=== PATIENT | male | born 1950 | race Caucasian/White ===

== ENCOUNTER 2020-10-14 15:11 | Inpatient (IN) | payer MEDICAID, MEDICARE ==
[2020-10-13 20:00] VITALS: BP 153/93
[~2020-10-14] VITALS: Ht 182.9 cm; Wt 68.0 kg
--- NOTE | 2020-10-14 15:29 | NUR ---
LEYDA FROM [facility] TO ER BED 7. AAOX2. NOT IN RESP DISTRESS, BREATHING EVEN AND UNLABORED. BROUGHT IN FOR HD SHUNT MALFUNCTION. PER REPORT, PT WAS SUPPOSE TO BE DIALYSED BUT SHUNT IS REPORTED "CLOGGED". PT DID NOT GET DIALYSED TODAY (M,W,F). PT IS RUDE AND VERBALLY ABUSSIVE. WAS AT THE BEDSIDE FOR EVAL. AWAITING ORDERS
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
[2020-10-14 16:18] LABS: BASOPHILS # (AUTO) 0.1 /CMM (0.0-0.2); EOSINOPHILS % (AUTO) 5.8 % (0.0-6.0); HEMATOCRIT 34 % (39-51); HEMOGLOBIN 11.3 g/dL (13.5-17.5); LYMPHOCYTES # (AUTO) 1.5 /CMM (0.8-4.8); LYMPHOCYTES % (AUTO) 27.7 % (20.0-44.0); MEAN CORPUSCULAR HGB CONC 33 g/dl (31.0-36.0); MEAN CORPUSCULAR VOLUME 97 fL (80-96); MONOCYTES # (AUTO) 0.4 /CMM (0.1-1.30); MONOCYTES % (AUTO) 8.3 % (2.0-12.0); NEUTROPHILS % (AUTO) 57.2 % (43.0-81.0); PLATELET COUNT (AUTO) 193 /CMM (150-450); RED BLOOD CELL COUNT(AUTO) 3.53 MIL/uL (4.5-6.0); WHITE BLOOD COUNT (AUTO) 5.3 K/uL (4.3-11.0)
[2020-10-14] MEDS ORDERED: NITR0.4T48 SL (16:39)
[2020-10-14] MEDS ORDERED: OMEP1PAC7 PO (16:39)
[2020-10-14] MEDS ORDERED: ACID1TAB12 PO (16:39)
[2020-10-14] MEDS ORDERED: LEVE500T9 PO (16:39)
[2020-10-14] MEDS ORDERED: CHOL100040 PO (16:39)
[2020-10-14] MEDS ORDERED: INSU100V10 SQ (16:39)
[2020-10-14] MEDS ORDERED: SEVE800T7 PO (16:39)
[2020-10-14] MEDS ORDERED: QUET50TA PO (16:39)
[2020-10-14] MEDS ORDERED: ACET-868 PO (16:39)
[2020-10-14] MEDS ORDERED: HYDR25CA PO (16:39)
[2020-10-14] MEDS ORDERED: SEVE2.4P3 PO (16:39)
[2020-10-14] MEDS ORDERED: AMLO-213 PO (16:39)
[2020-10-14] MEDS ORDERED: EPOE1VIA7 SQ (16:39)
[2020-10-14] MEDS ORDERED: TAMS-12 PO (16:39)
[2020-10-14] MEDS ORDERED: ONDA4TAB5 PO (16:39)
[2020-10-14] MEDS ORDERED: FOLI0.8T2 PO (16:39)
[2020-10-14] MEDS ORDERED: ALLO100T PO (16:39)
[2020-10-14] MEDS ORDERED: ASPI-1169 PO (16:39)
[2020-10-14] MEDS ORDERED: LORA-259 PO (16:39)
[2020-10-14] MEDS ORDERED: ATOR10TA PO (16:39)
[2020-10-14] MEDS ORDERED: INSU100V11 SQ (16:39)
[2020-10-14] MEDS ORDERED: TRAZ-182 PO (16:39)
[2020-10-14] MEDS ORDERED: LIDO30CR TP (16:39)
[2020-10-14] MEDS ORDERED: MAGNESIUM HYDROXIDE 30 ML UDC PO PRN (17:00)
[2020-10-14] MEDS ORDERED: ACETAMINOPHEN 325 MG TABLET PO PRN (17:00)
[2020-10-14] MEDS ORDERED: Z GUARD REMEDY 2 OZ OINT TP PRN (17:00)
[2020-10-14] MEDS ORDERED: DEXTROSE 50%-WATER 50 ML DISP.SYRIN IV PRN (17:00)
[2020-10-14] MEDS ORDERED: MORPHINE SULFATE INJ 2 MG/ML DISP.SYRIN IV PRN (17:00)
[2020-10-14] MEDS ORDERED: NITROGLYCERIN 0.4 MG/TAB BOTTLE SL PRN (17:00)
[2020-10-14] MEDS ORDERED: MAG HYDROX/AL HYDROX/SIMETH 30 ML UDC PO PRN (17:00)
[2020-10-14] MEDS ORDERED: ONDANSETRON HCL/PF 4 MG/2 ML VIAL IVP PRN (17:00)
[2020-10-14 17:01] LABS: CALCIUM, SERUM 9.6 mg/dL (8.5-10.1); CARBON DIOXIDE 24 mmol/L (21-32); CHLORIDE 102 mmol/L (98-107); GLUCOSE 276 mg/dL (74-106); POTASSIUM 4.9 mmol/L (3.5-5.1); SODIUM SERUM 143 mmol/L (136-145)
[2020-10-14 17:02] LABS: CREATININE 14.2 mg/dL (0.6-1.3); UREA NITROGEN, BLOOD 104 mg/dL (7-18)
--- NOTE | 2020-10-14 17:37 | NUR ---
203-1 MS. PRIMARY NURSE AWARE.
--- NOTE | 2020-10-14 18:18 | NUR ---
report given to Merle YOST for maddie.
--- NOTE | 2020-10-14 18:37 | NUR ---
pt transported to unit on gurney with emt and rn at the bedside w/ acls protocol. nad notd during transport.
--- NOTE | 2020-10-14 18:38 | NUR ---
pt transported to unit on gurney with emt and rn at bedside w/ acls protocol. nad noted during transport.
[2020-10-14 18:40] VITALS: BP 97/58
--- NOTE | 2020-10-14 18:40 | NUR ---
CONTRACTS LAW PROFESSOR NOTES PATIENT RECEIVED IN VIA JENNIFERRSELENA, ALERT AND ORIENTED X 1, PATIENT VERY CONFUSED SCREAMING, AND YELLING PROFANITY WORDS, BEING VERBALLY ABUSIVE AND BEING AGGRESSIVE, UNCOOPERATIVE. ON ROOM AIR WITH NO SIGNS OF RESPIRATORY DISTRESS WITH EVEN NON-LABORED BREATHING AND NO SOB NOTED. PATIENT O2 SATURATION AT 97%. TRIED TO PLACE PATIENT ON HUMAN RESOURCES ASSISTANT MANAGER. IV ACCESS ON RIGHT HAND 20 GAUGE SALINE LOCK. SKIN WARM AND DRY TO TOUCH. SAFETY PRECAUTIONS IMPLEMENTED WITH BED LOCKED, BED IN THE LOWEST POSITION, BILATERAL SIDE RAILS UP, AND CALL LIGHT WITHIN EASY REACH OF PATIENT. WILL ENDORSE PLAN OF CARE TO UPCOMING RN.
--- NOTE | 2020-10-14 19:35 | NUR ---
PT HAS REFUSED VITALS SINCE BEING BROUGHT TO UNIT AND HAS BEEN REFUSING CARDIAC MONITORING. ENDORSED BY AM NURSE. WILL FOLLOW UP.
--- NOTE | 2020-10-14 19:45 | NUR ---
RN OPENING NOTES RECEIVED PT IN BED. A/O X 2. PT IS AGGRESSIVE/AGITATED. REFUSING BASIC CARE SUCH CARDIAC MONITORING AND ROUTINE VITALS. EXPLAINED TO PT RISKS AND BENEFITS X 2. PT STILL REFUSING. PT YELLING, USING PROFANITY. PT IS ON ROOM AIR TOLERATING WELL, NO S/S OF RESP DISTRESS OR SOB NOTED. BREATHING IS EVEN AND UNLABORED AT THIS TIME. IV SITE NOTED, RIGHT HAND. FLUSHED ASEPTICALLY, SALINE LOCKED. PT NOTED TO HAVE DISCOLORATION BRUISING NOTED ON ARMS AND HANDS. PT DENIES/REFUSES A POSTERIOR/FULL BODY SKIN CHECK. REFUSED TO REMOVE BLANKETS/SOCKS FOR SKIN CHECK. PT VERBALIZED HE WANTS TO BE LEFT ALONE. SAFETY MEASURES IN PLACE. HEAD OF BED ELEVATED. SIDE RAILS UP X 2. BED LOCKED IN LOWEST POSITION WITH BED ALARM ON. CALL LIGHT IN REACH. WILL CONTINUE TO MONITOR.
[2020-10-14 20:00] VITALS: BP 153/93
[2020-10-14] MEDS: ACIDOPHILUS/BULGARICUS 1 EACH TAB.CHEW PO SCH (20:30)
[2020-10-14] MEDS: TAMSULOSIN 0.4 MG CAP.SR.24H PO SCH (20:30)
[2020-10-14] MEDS: CHOLECALCIFEROL 1,000 UNIT TABLET (VIT D3) PO SCH (20:30)
[2020-10-14] MEDS: VIT B CMPLX 3/FA/VIT C/BIOTIN 1 TAB TABLET PO SCH (20:30)
--- NOTE | 2020-10-14 20:30 | NUR ---
PT PERMITS VITALS TO BE TAKEN AT THIS TIME. PT ALSO COMPLAINS OF GENERALIZED PAIN / REQUESTS PRN MEDICATION. PT STILL REFUSES SKIN CHECK AT THIS TIME.
[2020-10-14] MEDS: ALLOPURINOL 100 MG TABLET PO SCH (20:31)
[2020-10-14] MEDS: ASPIRIN 81 MG TAB.CHEW PO SCH (20:31)
[2020-10-14] MEDS: SEVELAMER CARBONATE 800 MG TABLET PO SCH (20:31)
[2020-10-14] MEDS: LEVETIRACETAM (250 MG) 250 MG TABLET PO SCH (20:32)
[2020-10-14] MEDS: AMLODIPINE BESYLATE 10 MG TABLET PO SCH (20:57)
[2020-10-14] MEDS: HYDROCODONE/APAP 5/325MG TABLET PO PRN (20:58)
[2020-10-14] MEDS: TRAZODONE 50 MG TABLET PO SCH (21:31)
[2020-10-14] MEDS: ATORVASTATIN 10 MG TABLET PO SCH (21:31)
[2020-10-14] MEDS: INSULIN REGULAR, HUMAN 100 UNIT/ML 3 ML VIAL SQ PRN (21:37)
[2020-10-14] MEDS: INSULIN GLARGINE, 100 UNIT/ML CARTRIDGE SQ SCH (21:38)
--- NOTE | 2020-10-14 22:00 | NUR ---
DID BLOOD SUGAR CHECK FOR 2200. EMAR LOGGED IT PREVIOUS TIME.
--- NOTE | 2020-10-14 22:35 | NUR ---
PT REFUSES DVT PUMPS. PT AWARE OF RISKS AND BENEFITS X2. STILL REFUSES AT THIS TIME.
[2020-10-14] MEDS: BLOOD SUGAR DIAGNOSTIC 1 EACH STRIP IN SCH (23:05)
--- NOTE | 2020-10-15 00:39 | NUR ---
PT REFUSED 0000 VITALS AND STILL REFUSES CARDIAC MONITORING. PT WISHES TO RETURN TO SLEEP AT THIS TIME. WILL CONTINUE TO MONITOR.
[2020-10-15] MEDS: BLOOD SUGAR DIAGNOSTIC 1 EACH STRIP IN SCH ×5 (01:29→22:44)
[2020-10-15] MEDS: SEVELAMER CARBONATE 800 MG TABLET PO SCH ×7 (01:29→20:18)
--- NOTE | 2020-10-15 01:29 | NUR ---
reviewed med list. benoit missed dose patient did not have dinner. achs scanned and performed at 2300
--- NOTE | 2020-10-15 02:54 | NUR ---
PT HAD 1 VOID, CLEANED. COOPERATIVE. NOW AT THIS TIME PT IS SLEEPING.
--- NOTE | 2020-10-15 03:24 | NUR ---
PT ALLOWED SKIN ASSESSMENT, NO OPEN SKIN WOUNDS NOTED. JUST DISCOLORATION ON THE HAND ARMS NOTED
[2020-10-15 04:00] VITALS: BP 130/76
--- NOTE | 2020-10-15 06:39 | NUR ---
RN CLOSING NOTES PT IS CALM, SLIGHTLY MORE COOPERATIVE THE NIGHT PROCEEDED. STILL REFUSING BRANCH OPERATION EVALUATION MANAGER AT THIS TIME. NO SIGNIFICANT CHANGES IN CONDITION. PT IS ON ROOM AIR TOLERATING WELL, NO S/S OF RESP DISTRESS OR SOB NOTED. BREATHING IS EVEN AND UNLABORED AT THIS TIME. IV SITE RIGHT HAND. FLUSHED ASEPTICALLY, SALINE LOCKED. SAFETY MEASURES IN PLACE. HEAD OF BED ELEVATED. SIDE RAILS UP X 2. BED LOCKED IN LOWEST POSITION WITH BED ALARM ON. CALL LIGHT IN REACH. WILL CONTINUE TO MONITOR. Addendum: 10/15/20 at 0641 by JITENDRA CHAPMAN RN WILL ENDORSE TO AM NURSE FOR CONTINUATION OF CARE
--- NOTE | 2020-10-15 07:45 | NUR ---
RN NOTES RECEIVED PT IN BED, AWAKE, VERY PARTICULAR AND DEMANDING, BEING RUDE AND CURSING WITH STAFFS WELL. PT TOLERATING RA,WITH ACUTE RESPIRATORY DISTRESS NOTED. PT DENIES ANY PAIN OR DISCOMFORT AT THIS TIME.TELEMONITORING REFUSED, RISKS AND BENEFITS EXPLAINED, STILL REFUSED TO HAVE IT. PIV TO LEFT HAND G20, FLUSHED WITH NS INTACT AND OPERATIONAL. KEPT COMFORTABLE IN BED. CALL LIGHT KEPT WITHIN REACH. PT'S BED IN LOWEST, LOCKED POSITION WITH SRX3. WILL CONTINUE PLAN OF CARE.
[2020-10-15 07:53] LABS: BASOPHILS % (AUTO) 0.9 % (0.0-2.0); EOSINOPHILS % (AUTO) 6.6 % (0.0-6.0); HEMATOCRIT 35 % (39-51); HEMOGLOBIN 11.5 g/dL (13.5-17.5); LYMPHOCYTES # (AUTO) 1.5 /CMM (0.8-4.8); LYMPHOCYTES % (AUTO) 27.8 % (20.0-44.0); MEAN CORPUSCULAR HGB CONC 33 g/dl (31.0-36.0); MEAN CORPUSCULAR VOLUME 96 fL (80-96); MONOCYTES # (AUTO) 0.5 /CMM (0.1-1.30); MONOCYTES % (AUTO) 8.7 % (2.0-12.0); NEUTROPHILS # (AUTO) 2.9 /CMM (1.8-8.9); PLATELET COUNT (AUTO) 190 /CMM (150-450); RED BLOOD CELL COUNT(AUTO) 3.63 MIL/uL (4.5-6.0); WHITE BLOOD COUNT (AUTO) 5.2 K/uL (4.3-11.0)
[2020-10-15 08:00] VITALS: BP 141/76
[2020-10-15] MEDS: INSULIN REGULAR, HUMAN 100 UNIT/ML 3 ML VIAL SQ PRN ×5 (08:09→23:10)
[2020-10-15] MEDS: PANTOPRAZOLE 40 MG TABLET.DR PO SCH (08:11)
[2020-10-15] MEDS: ACIDOPHILUS/BULGARICUS 1 EACH TAB.CHEW PO SCH ×2 (08:11→16:28)
[2020-10-15] MEDS: LEVETIRACETAM (250 MG) 250 MG TABLET PO SCH ×2 (08:11→20:19)
[2020-10-15] MEDS: QUETIAPINE FUMARATE 25 MG TABLET PO SCH ×2 (08:11→16:28)
[2020-10-15] MEDS: LORAZEPAM 1 MG TABLET PO SCH (08:11)
[2020-10-15] MEDS: hydrOXYzine PAMOATE 25 MG CAPSULE PO SCH (08:12)
[2020-10-15] MEDS: LIDOCAINE/PRILOCAINE (5GM) 5 GM TUBE TP SCH (08:12)
[2020-10-15 08:37] LABS: CALCIUM, SERUM 9.2 mg/dL (8.5-10.1); MAGNESIUM 2.9 mg/dL (1.8-2.4); PHOSPHORUS 5.6 mg/dL (2.5-4.9); POTASSIUM 5.1 mmol/L (3.5-5.1)
[2020-10-15 08:59] LABS: CREATININE 14.4 mg/dL (0.6-1.3)
[2020-10-15 12:00] VITALS: BP 138/79
--- NOTE | 2020-10-15 14:52 | NUR ---
Callteodora Lubin [place] [phone] ,spoke to Danni and verified that flu shot was given Aug
--- NOTE | 2020-10-15 15:41 | NUR ---
RN NOTES RECEIVED COVID PCR RESULTS, NEGATIVE. HOSPITALIST/NN IN THE UNIT AND MADE AWARE. OKAY TO TRANSFER PT TO [place]. OKAY TO DISCONTINUE TELE PER NN. WILL ENDORSE TO 3STEELES TAVERN NURSE AND CHARGE NURSE/OTTO.
[2020-10-15 16:00] VITALS: BP 130/80
[2020-10-15] MEDS: ALLOPURINOL 100 MG TABLET PO SCH (17:01)
[2020-10-15] MEDS: CHOLECALCIFEROL 1,000 UNIT TABLET (VIT D3) PO SCH (17:02)
[2020-10-15] MEDS: ASPIRIN 81 MG TAB.CHEW PO SCH (17:02)
[2020-10-15] MEDS: TAMSULOSIN 0.4 MG CAP.SR.24H PO SCH (17:02)
[2020-10-15] MEDS: AMLODIPINE BESYLATE 10 MG TABLET PO SCH (17:02)
[2020-10-15] MEDS: VIT B CMPLX 3/FA/VIT C/BIOTIN 1 TAB TABLET PO SCH (17:03)
--- NOTE | 2020-10-15 18:26 | NUR ---
RN NOTES TRANSFERRED PT TO [facility] SURGE ROOM 312-1, ENDORSED TO RN/PETERSON FOR KRISTEN.
--- NOTE | 2020-10-15 18:30 | NUR ---
RN MS NOTES RECEIVED TRANSFER PATIENT FROM ROOM 203 TELE. PATIENT IN STABLE CONDITION. A/OX 3. ON RA BREATHING EVEN AND UNLABORED WITH NO S/S OR C/O SOB. PT C/O CHRONIC BACK PAIN 06/24 PT DECLINED ANY PAIN MEDICATION AT THIS TIME. IV TO LT WRIST AREA #20G SL. BP:145/69 HR:94 O2 SAT 98% R:18 T:98.4. PT IS BLIND AND NEEDS ASSISTANCE WITH FEEDING. PT WILL HAVE AV SHUNT REPAIR 10/16 CONSENT PENDING SIGNATURE. PT NPO AFTER MIDNIGHT; PER OR NURSE OK TO TO GIVE AM MEDS. BED IS AT LOWEST POSITION AND LOCKED WITH SIDE RAILS UPX2 AND CALL LIGHT WITH IN REACH. ALL SAFETY MEASURES IN PLACE. WILL ENDORSE TO ONCOMING SHIFT.
--- NOTE | 2020-10-15 19:50 | NUR ---
MS RN NOTES RECEIVED PATIENT AWAKE ALERT ORIENTED X3 WITH EPISODE OF CONFUSION. NO SIGNS OF ACUTE RESPIRATORY DISTRESS.BREATHING EVEN AND UNLABORED. SAFETY MEASURES IN PLACE, ASPIRATION PRECAUTION EMPHASIZED. PATIENT IS A FEEDER. CALL LIGHT WITHIN EASY REACH. REPOSITIONED FOR COMFORT. PATIENT WILL HAVE LEFT ARM THROMBECTOMY, POSSIBLE REVISION, POSSIBLE NEW PLACEMENT AND CATHETER PLACEMENT. ALL NEEDS ANTICIPATED. WILL CONTINUE TO MONITOR ACCORDINGLY.
[2020-10-15 20:00] VITALS: BP 136/81
--- NOTE | 2020-10-15 21:00 | NUR ---
RN NOTE PT RECEIVED FROM LISA (RITIKA) FOR KRISTEN. PT IS A/A/O X2, ON RA SATING ABOVE 95%. PT HAS UNLABORED BREATHING. SAFETY MEASURES IN PLACE.
[2020-10-15] MEDS: ATORVASTATIN 10 MG TABLET PO SCH (21:04)
[2020-10-15] MEDS: TRAZODONE 50 MG TABLET PO SCH (21:04)
--- NOTE | 2020-10-15 21:27 | NUR ---
RN NOTES REPORT GIVEN TO RITIKA GARDUNO FOR CONTINUITY OF CARE.
[2020-10-15] MEDS ORDERED: INSULIN REGULAR, HUMAN 100 UNIT/ML 3 ML VIAL ONE (22:44)
[2020-10-15] MEDS ORDERED: INSULIN GLARGINE, 100 UNIT/ML CARTRIDGE SQ ONE (22:44)
[2020-10-15] MEDS: INSULIN GLARGINE, 100 UNIT/ML CARTRIDGE SQ SCH (22:59)
--- NOTE | 2020-10-15 23:00 | NUR ---
INSULIN LANTUS AND REGULAR INSULIN NOT GIVEN BECAUSE PT WILL BE NPO AFTER MIDNIGHT, AND IS GOING TO HAVE A PROCEDURE AT 4 PM.
--- NOTE | 2020-10-16 07:20 | NUR ---
RN NOTE PT REMAINED STABLE DURING MY SHIFT, REPORT GIVEN TO INCOMING NURSE FOR KRISTEN.
[2020-10-16] MEDS: PANTOPRAZOLE 40 MG TABLET.DR PO SCH (07:30)
[2020-10-16] MEDS: BLOOD SUGAR DIAGNOSTIC 1 EACH STRIP IN SCH ×4 (07:34→22:00)
--- NOTE | 2020-10-16 07:35 | NUR ---
MS/RN NOTES RECEIVED PATIENT IS ON BED. PATIENT IS AWAKE AND ORIENTED X 2-3. NO COMPLAINED OF PAIN NOTED AT THIS TIME/ NO APPARENT RESPIRATORY DISTRESS NOTED. WILL CONTINUE TO MONITOR.
[2020-10-16 08:00] VITALS: BP 147/81
[2020-10-16] MEDS: SEVELAMER CARBONATE 800 MG TABLET PO SCH ×6 (08:00→19:57)
--- NOTE | 2020-10-16 08:00 | NUR ---
MS/RN NOTES PATIENT REFUSED TO TAKE BLOOD DRAW FOR LABORATORY TEST. MD IS AWARE. EXPLAINED THE RISK AND BENEFITS PATIENT IS STILL REFUSING.
--- NOTE | 2020-10-16 08:30 | NUR ---
MS/RN NOTES ULISES WILHELM DNP ORDER ATIVAN 1MG IV ONCE NOTED AND CARRIED OUT.
[2020-10-16] MEDS: QUETIAPINE FUMARATE 25 MG TABLET PO SCH ×2 (09:00→16:53)
[2020-10-16] MEDS: ACIDOPHILUS/BULGARICUS 1 EACH TAB.CHEW PO SCH ×2 (09:00→16:53)
[2020-10-16] MEDS: LEVETIRACETAM (250 MG) 250 MG TABLET PO SCH ×2 (09:00→21:08)
[2020-10-16] MEDS: LIDOCAINE/PRILOCAINE (5GM) 5 GM TUBE TP SCH (09:00)
[2020-10-16] MEDS: LORAZEPAM 1 MG TABLET PO SCH (09:00)
[2020-10-16] MEDS: hydrOXYzine PAMOATE 25 MG CAPSULE PO SCH (09:00)
[2020-10-16] MEDS ORDERED: LORAZEPAM INJ 2 MG/ML VIAL IV ONE (12:00)
--- NOTE | 2020-10-16 12:31 | NUR ---
MS/RN NOTES PATIENT REFUSED TO TAKE BLOOD SUGAR TEST. MD IS AWARE, PATIENT YELLING AND VERBALIZING "FUCKING SHIT", "FUCKING BITCH". WILL CONTINUE TO MONITOR.
[2020-10-16] MEDS ORDERED: IOHEXOL 240MG/ML 0 ML IV ONE (15:21)
[2020-10-16] MEDS ORDERED: LIDOCAINE HCL/MPF 1% 30 ML VIAL IJ ONE (15:21)
[2020-10-16] MEDS ORDERED: HEPARIN SODIUM, PORCINE 1,000 UNIT/ML VIAL ONE ×2 (15:22→15:56)
[2020-10-16] MEDS ORDERED: THROMBIN (BOVINE) 5,000 UNITS VIAL TP ONE (15:22)
[2020-10-16] MEDS ORDERED: BUPIVACAINE MPF W/EPI 0.25% 30 ML VIAL ONE (15:22)
[2020-10-16] MEDS ORDERED: ANESTHESIA TRAY IN PYXIS 1 EA TRAY MC ONE (15:25)
[2020-10-16] MEDS ORDERED: MIDAZOLAM HCL 2 MG/2ML VIAL ONE (15:59)
[2020-10-16] MEDS ORDERED: FENTANYL PF 250MCG/5ML AMPUL ONE (16:00)
[2020-10-16] MEDS ORDERED: FAMOTIDINE/PF INJ 20 MG/2 ML VIAL IV ONE (16:01)
[2020-10-16] MEDS ORDERED: HEPARIN SODIUM, PORCINE 5000 UNITS/1 ML VIAL ONE (16:03)
[2020-10-16] MEDS ORDERED: protAMINE SULFATE 10 MG/ML VIAL IV ONE (16:09)
[2020-10-16] MEDS ORDERED: ATRACURIUM 100MG/10 ML MDV IV ONE (16:11)
--- NOTE | 2020-10-16 16:25 | NUR ---
MS/RN NOTES PATIENT IS OUT IN THE UNIT ACTUARIAL ASSISTANT BY CURRICULUM COORDINATOR. PATIENT IN NO APPARENT RESPIRATORY DISTRESS NOTED. NO COMPLAINED OF PAIN AT THIS TIME.
[2020-10-16] MEDS ORDERED: CLINDAMYCIN 900 MG/6 ML VIAL ONE (16:48)
[2020-10-16] MEDS: VIT B CMPLX 3/FA/VIT C/BIOTIN 1 TAB TABLET PO SCH (18:00)
[2020-10-16] MEDS: TAMSULOSIN 0.4 MG CAP.SR.24H PO SCH (18:00)
[2020-10-16] MEDS: ASPIRIN 81 MG TAB.CHEW PO SCH (18:00)
[2020-10-16] MEDS: AMLODIPINE BESYLATE 10 MG TABLET PO SCH (18:00)
[2020-10-16] MEDS: ALLOPURINOL 100 MG TABLET PO SCH (18:00)
[2020-10-16] MEDS: CHOLECALCIFEROL 1,000 UNIT TABLET (VIT D3) PO SCH (18:00)
--- NOTE | 2020-10-16 19:06 | NUR ---
MS/RN NOTES PATIENT IS STILL IN THE OR. GIVE REPORT TO CHER FOR KRISTEN.
[2020-10-16 19:30] VITALS: BP 134/68
--- NOTE | 2020-10-16 19:30 | NUR ---
RN OPENING NOTES Received patient from OR. S/P HD catheter placement, Left IJ. Site covered with dressing, clean, dry and intact, no s/sx of bleeding noted. Pot-op orders noted and carried out. Provided snacks to patient. Kept on bed clean, dry and comfortable. On fall and aspiration precautions. Will continue to monitor accordingly.
[2020-10-16 20:00] VITALS: BP 134/72
[2020-10-16] MEDS: HYDROCODONE/APAP 5/325MG TABLET PO PRN (21:08)
[2020-10-16] MEDS: TRAZODONE 50 MG TABLET PO SCH (21:08)
[2020-10-16] MEDS: ATORVASTATIN 10 MG TABLET PO SCH (21:08)
--- NOTE | 2020-10-16 21:18 | NUR ---
RN NOTES Pt requested for due meds. Given as ordered. Pt agreed to have his blood drawn witnessed by MILY Thomas. Lab notified. Awaiting for slab grinder to draw blood.
--- NOTE | 2020-10-16 21:50 | NUR ---
RN NOTES emergency spill response technician Caroline at bedside to draw blood sample. Unable to draw blood after multiple attempts. Pt requested to re-sched the blood draw in AM.
--- NOTE | 2020-10-17 06:25 | NUR ---
RN CLOSING NOTES Pt asleep on bed, on RA. No s/sx of discomfort noted. Pt refused AM blood draw. Pt refused blood sugar check. All nursing needs attended, due meds given as ordered. On fall and aspiration precautions. Endorsed.
[2020-10-17] MEDS: BLOOD SUGAR DIAGNOSTIC 1 EACH STRIP IN SCH ×4 (07:30→23:25)
[2020-10-17 08:00] VITALS: BP 147/105
[2020-10-17] MEDS: LIDOCAINE/PRILOCAINE (5GM) 5 GM TUBE TP SCH (09:00)
[2020-10-17] MEDS: SEVELAMER CARBONATE 800 MG TABLET PO SCH ×6 (09:40→20:40)
[2020-10-17] MEDS: ACIDOPHILUS/BULGARICUS 1 EACH TAB.CHEW PO SCH ×2 (09:40→18:41)
[2020-10-17] MEDS: LORAZEPAM 1 MG TABLET PO SCH (09:40)
[2020-10-17] MEDS: LEVETIRACETAM (250 MG) 250 MG TABLET PO SCH ×2 (09:40→20:40)
[2020-10-17] MEDS: PANTOPRAZOLE 40 MG TABLET.DR PO SCH (09:41)
[2020-10-17] MEDS: QUETIAPINE FUMARATE 25 MG TABLET PO SCH ×2 (09:41→18:40)
[2020-10-17] MEDS: hydrOXYzine PAMOATE 25 MG CAPSULE PO SCH (09:44)
[2020-10-17] MEDS: INSULIN REGULAR, HUMAN 100 UNIT/ML 3 ML VIAL SQ PRN ×2 (12:09→23:25)
[2020-10-17 15:28] LABS: BASOPHILS % (AUTO) 1.1 % (0.0-2.0); EOSINOPHILS % (AUTO) 1.6 % (0.0-6.0); HEMATOCRIT 30 % (39-51); HEMOGLOBIN 9.8 g/dL (13.5-17.5); LYMPHOCYTES # (AUTO) 0.9 /CMM (0.8-4.8); LYMPHOCYTES % (AUTO) 23.2 % (20.0-44.0); MEAN CORPUSCULAR HGB CONC 33 g/dl (31.0-36.0); MEAN CORPUSCULAR VOLUME 95 fL (80-96); MONOCYTES # (AUTO) 0.2 /CMM (0.1-1.30); MONOCYTES % (AUTO) 5.9 % (2.0-12.0); NEUTROPHILS # (AUTO) 2.7 /CMM (1.8-8.9); NEUTROPHILS % (AUTO) 68.2 % (43.0-81.0); PLATELET COUNT (AUTO) 156 /CMM (150-450); RED BLOOD CELL COUNT(AUTO) 3.11 MIL/uL (4.5-6.0)
[2020-10-17 16:00] VITALS: BP 124/77
[2020-10-17 16:03] LABS: CALCIUM, SERUM 8.8 mg/dL (8.5-10.1)
[2020-10-17 16:05] LABS: CREATININE 14.1 mg/dL (0.6-1.3)
[2020-10-17] MEDS: CHOLECALCIFEROL 1,000 UNIT TABLET (VIT D3) PO SCH (18:38)
[2020-10-17] MEDS: ASPIRIN 81 MG TAB.CHEW PO SCH (18:38)
[2020-10-17] MEDS: TAMSULOSIN 0.4 MG CAP.SR.24H PO SCH (18:39)
[2020-10-17] MEDS: ALLOPURINOL 100 MG TABLET PO SCH (18:39)
[2020-10-17] MEDS: AMLODIPINE BESYLATE 10 MG TABLET PO SCH (18:40)
[2020-10-17] MEDS: VIT B CMPLX 3/FA/VIT C/BIOTIN 1 TAB TABLET PO SCH (18:42)
--- NOTE | 2020-10-17 18:42 | NUR ---
MS/RN NOTES BS 137 MG/DL PATIENT REFUSED INSULIN 2 UNITS. EXPLAINED THE RISK AND BENEFITS. WILL CONTINUE TO MONITOR.
--- NOTE | 2020-10-17 19:42 | NUR ---
MS RN OPENING NOTES PATIENT AWAKE IN BED. A/OX2-3. PATIENT STATES HE IS PARTIALLY BLIND IN BOTH EYES. ON RA; NO S/S OF ACUTE RESPIRATORY DISTRESS; BREATHING IS EVEN AND UNLABORED. NO C/O PAIN. IV PRESENT ON RIGHT HAND, SIZE 20, INTACT & PATENT, HEP LOCKED. HD CATH PRESENT ON LEFT UPPER CHEST; DRESSING DRY AND INTACT. SAFETY MEASURES IN PLACE AND PATIENT'S NEEDS MET. BED LOCKED, SEMI FOWLERS POSITION, SIDE RAILS X3, CALL LIGHT WITHIN REACH. WILL CONTINUE TO MONITOR.
--- NOTE | 2020-10-17 19:44 | NUR ---
MS/RN CLOSING NOTES PATIENT IS ALERT AND ORIENTED X2-3. PATIENT IN NO APPARENT RESPIRATORY DISTRESS NOTED. NO COMPLAINED OF PAIN AT THIS TIME. IV ACCESS AT RIGHT HAND # 20 G PATENT AND INTACT. SEEN AND EXAMINED BY MD WITH ORDERS MADE AND CARRIED OUT. ALL DUE MEDICATIONS WAS GIVEN. SAFETY PRECAUTIONS WAS IN PLACED. BED IN LOWEST POSITION AND LOCKED. SIDERAILS UP X 2. CALL LIGHT WITHIN REACH. WILL ENDORSED TO CHIEF CREDIT OFFICER FOR KRISTEN.
[2020-10-17 20:00] VITALS: BP 152/88
[2020-10-17] MEDS: ATORVASTATIN 10 MG TABLET PO SCH (21:57)
[2020-10-17] MEDS: TRAZODONE 50 MG TABLET PO SCH (21:57)
[2020-10-17] MEDS: INSULIN GLARGINE, 100 UNIT/ML CARTRIDGE SQ SCH (22:00)
[2020-10-18] MEDS: BLOOD SUGAR DIAGNOSTIC 1 EACH STRIP IN SCH ×4 (07:01→21:51)
[2020-10-18] MEDS: INSULIN REGULAR, HUMAN 100 UNIT/ML 3 ML VIAL SQ PRN ×3 (07:02→21:50)
[2020-10-18] MEDS: PANTOPRAZOLE 40 MG TABLET.DR PO SCH (07:30)
--- NOTE | 2020-10-18 07:49 | NUR ---
MS RN CLOSING NOTES PATIENT AWAKE IN BED. A/OX2-3. ON RA; NO S/S OF ACUTE RESPIRATORY DISTRESS; BREATHING IS EVEN AND UNLABORED. NO C/O PAIN. IV PRESENT ON RIGHT HAND, SIZE 20, INTACT & PATENT, HEP LOCKED. HD CATH PRESENT ON LEFT UPPER CHEST; DRESSING DRY AND INTACT. SAFETY MEASURES IN PLACE AND PATIENT'S NEEDS MET. BED LOCKED, SEMI FOWLERS POSITION, SIDE RAILS X3, CALL LIGHT WITHIN REACH. ENDORSED TO DAY SHIFT RN PLAN OF CARE.
[2020-10-18 08:00] VITALS: BP 135/84
[2020-10-18] MEDS: SEVELAMER CARBONATE 800 MG TABLET PO SCH ×6 (08:00→21:45)
[2020-10-18] MEDS: QUETIAPINE FUMARATE 25 MG TABLET PO SCH ×2 (08:48→17:05)
[2020-10-18] MEDS: LORAZEPAM 1 MG TABLET PO SCH (08:48)
[2020-10-18] MEDS: hydrOXYzine PAMOATE 25 MG CAPSULE PO SCH (08:51)
[2020-10-18] MEDS: ACIDOPHILUS/BULGARICUS 1 EACH TAB.CHEW PO SCH ×2 (08:59→17:05)
[2020-10-18] MEDS: LIDOCAINE/PRILOCAINE (5GM) 5 GM TUBE TP SCH (08:59)
[2020-10-18] MEDS: LEVETIRACETAM (250 MG) 250 MG TABLET PO SCH ×2 (08:59→21:44)
--- NOTE | 2020-10-18 09:00 | NUR ---
m/s lobster fisherman: notes pt resistive to am care, pt hitting staff and verbally abusive. reality orientation provided prn. will continue to monitor.
--- NOTE | 2020-10-18 12:51 | NUR ---
m/s manufacturing maintenance manager: nephro f/u seen by dr. malhotra with order for hd tx today. pt sounds asleep. no distress noted.
--- NOTE | 2020-10-18 13:15 | NUR ---
m/s compliance vice president: notes hd nurse at bedside, pt yelling and screaming at hd nurse. reality orientation provided prn. able to calm down pt by given reassurance. will continue to monitor.
--- NOTE | 2020-10-18 13:30 | NUR ---
m/s mortgage accounting clerk: notes hd tx started by raj (enriqueta) at this time. will continue to monitor.
[2020-10-18 14:51] LABS: CALCIUM, SERUM 8.9 mg/dL (8.5-10.1); POTASSIUM 5.5 mmol/L (3.5-5.1)
[2020-10-18 14:55] LABS: CREATININE 11.2 mg/dL (0.6-1.3)
--- NOTE | 2020-10-18 15:00 | NUR ---
m/s electrical power station technician: notes hd tx in progress. no distress noted. will continue to monitor.
[2020-10-18 16:02] VITALS: BP 137/80
--- NOTE | 2020-10-18 16:20 | NUR ---
m/s drainage engineer: notes hd tx completed with 500ml uf per raj (hd nurse).
[2020-10-18] MEDS: ASPIRIN 81 MG TAB.CHEW PO SCH (17:04)
[2020-10-18] MEDS: AMLODIPINE BESYLATE 10 MG TABLET PO SCH (17:04)
[2020-10-18] MEDS: CHOLECALCIFEROL 1,000 UNIT TABLET (VIT D3) PO SCH (17:05)
[2020-10-18] MEDS: ALLOPURINOL 100 MG TABLET PO SCH (17:05)
[2020-10-18] MEDS: VIT B CMPLX 3/FA/VIT C/BIOTIN 1 TAB TABLET PO SCH (17:05)
[2020-10-18] MEDS: TAMSULOSIN 0.4 MG CAP.SR.24H PO SCH (17:05)
--- NOTE | 2020-10-18 19:00 | NUR ---
m/s senior lead software engineer: notes report given to mary (rn) for continuity of care.
--- NOTE | 2020-10-18 19:58 | NUR ---
MS/RN OPENING NOTE Patient asleep in bed, A/O x1-2, on bedrest. Breath sounds even, unlabored on room air. Patient denies pain, nausea, vomiting, diarrhea. No acute distress or SOB noted. PERRLA. Skin warm, pink, dry, appropriate for ethnicity. Brachial and pedal pulses 2+, symmetrical. IV site R hand 20g saline locked. HD catheter noted in left IJ. Abdomen round, non-tender. BS active. Patient is incontinent. Bed in low position, wheels locked, side rails up x2, call light within reach.
[2020-10-18 20:00] VITALS: BP 117/62
[2020-10-18] MEDS: TRAZODONE 50 MG TABLET PO SCH (21:45)
[2020-10-18] MEDS: ATORVASTATIN 10 MG TABLET PO SCH (21:46)
[2020-10-18] MEDS: INSULIN GLARGINE, 100 UNIT/ML CARTRIDGE SQ SCH (21:50)
[2020-10-19] MEDS: HYDROCODONE/APAP 5/325MG TABLET PO PRN (04:39)
[2020-10-19] MEDS: PANTOPRAZOLE 40 MG TABLET.DR PO SCH (07:00)
[2020-10-19] MEDS: SEVELAMER CARBONATE 800 MG TABLET PO SCH ×5 (07:00→17:56)
[2020-10-19] MEDS: BLOOD SUGAR DIAGNOSTIC 1 EACH STRIP IN SCH ×4 (07:00→18:06)
--- NOTE | 2020-10-19 07:01 | NUR ---
MS/RN NOTE Patient refused medications and glucose check at this time. Patient was uncooperative and kept saying "get out".
--- NOTE | 2020-10-19 07:25 | NUR ---
MS/RN CLOSING NOTE Patient asleep in bed, A/O x1-2, on bedrest, uncooperative at times. Breath sounds even, unlabored on room air. Patient denies pain, nausea, vomiting, diarrhea. No acute distress or SOB noted. IV site R hand 20g saline locked. HD catheter noted in left IJ. Abdomen round, non-tender. BS active. Patient is incontinent. Patient void 2x, no bowel movement. All needs met. Linen changed. Pericare completed. Bed in low position, wheels locked, side rails up x2, call light within reach.
--- NOTE | 2020-10-19 07:42 | NUR ---
MS/RN Opening note Patient received from night auditor. A/O X2-3, cooperative at this time. Refused blood draw this morning, will attempt to obtain later. Complaining of back pain 07/25, will administer medications if ordered and due. Safety measures in place, bed in low setting, side rails X3 in upright position, call light within reach. Will continue to monitor and ensure safety.
[2020-10-19 08:00] VITALS: BP 138/72
--- NOTE | 2020-10-19 08:00 | NUR ---
MS/RN Refusing blood draw Patient refusing blood draw, Dr Moulton made aware.
[2020-10-19] MEDS: LORAZEPAM 1 MG TABLET PO SCH (09:00)
[2020-10-19] MEDS: QUETIAPINE FUMARATE 25 MG TABLET PO SCH ×2 (09:00→17:00)
[2020-10-19] MEDS: ACIDOPHILUS/BULGARICUS 1 EACH TAB.CHEW PO SCH ×2 (09:00→17:00)
[2020-10-19] MEDS: LEVETIRACETAM (250 MG) 250 MG TABLET PO SCH (09:00)
[2020-10-19] MEDS: LIDOCAINE/PRILOCAINE (5GM) 5 GM TUBE TP SCH (09:00)
[2020-10-19] MEDS: hydrOXYzine PAMOATE 25 MG CAPSULE PO SCH (09:00)
--- NOTE | 2020-10-19 09:15 | NUR ---
MS/RN S/B Dr Moulton Seen by Dr Moulton - patient for discharge back to senior care facility today once cleared by Dr Gerber (nephro)
--- NOTE | 2020-10-19 12:15 | NUR ---
MS/certified wellness program coordinator Refusing all lunch time scheduled medications. Patient educated as to what each medication is for and as to why it was important to take each as prescribed, but still refused. MD made aware.
--- NOTE | 2020-10-19 12:23 | NUR ---
MS/RN Blood sugar Blood sugar at noon 318, patient refusing insulin coverage. Educated as to the importance of lower blood glucose level but continues to refuse.
--- NOTE | 2020-10-19 15:13 | NUR ---
MS/RN S/B Dr Gerber Seen by Dr Gerber - made aware that internal medicine are waiting for his clearance to discharge patient. Awaiting orders.
--- NOTE | 2020-10-19 17:22 | NUR ---
MS/frame maker plan Patient to be discharged back to [facility], report called to Casandra. Provided with office contact information for Dr Bahena. Transport arranged for 8p. Exit care prepared and signed, medical record copied.
[2020-10-19] MEDS: TAMSULOSIN 0.4 MG CAP.SR.24H PO SCH (17:53)
[2020-10-19] MEDS: ASPIRIN 81 MG TAB.CHEW PO SCH (17:53)
[2020-10-19] MEDS: VIT B CMPLX 3/FA/VIT C/BIOTIN 1 TAB TABLET PO SCH (17:53)
[2020-10-19] MEDS: AMLODIPINE BESYLATE 10 MG TABLET PO SCH (17:54)
[2020-10-19] MEDS: ALLOPURINOL 100 MG TABLET PO SCH (17:56)
[2020-10-19] MEDS: CHOLECALCIFEROL 1,000 UNIT TABLET (VIT D3) PO SCH (17:56)
--- NOTE | 2020-10-19 18:20 | NUR ---
MS/RN End note Patient remains in stable condition, poultry picking machine tender scheduled for 8p. All paper work completed, report called to facility, casino shift manager to remove name bands and heplock. Will endorse to casino shift manager.
--- NOTE | 2020-10-19 19:00 | NUR ---
rn ms opening notes received patient in bed awake alert and verbally responsive,alert and oriented x1-2, verbally aggressive and non complaint, respirations even and unlabored with equal rise and fall of chest, awaiting discharge supervisor picking crew remains stable. will continue to monitor, safety precautions rendered low bed and locked, call light kept within reach.
--- NOTE | 2020-10-19 20:28 | NUR ---
rn ms discharge notes patient awake alert and verbally responsive,alert and oriented x1-2, verbally aggressive and anxious and in a hurry to leave vs 169/93,94,20,98.1,95% ra, and non complaint, respirations even and unlabored with equal rise and fall of chest, ambulance is here for discharge pick upto transfer to [facility]. exit care provided to emt. remains stable.vs stable, iv site to right hand removed, id band removed, left ij hd cath remains intact, no belongings with patient, left in stable condition.
== END 2020-10-19 20:25 | DRG 206 ==
LOC: ER 15:14 → MEDSG2 17:48 → TELE2 19:07 → MED 10-15 18:41 → TELE 10-15 18:45 → MED 10-16 23:19
PROVIDERS: ADMIT Nurse Practitioner Acute Care; ATTEND Nurse Practitioner Acute Care
PROC: 0JH63XZ Insertion of Tunneled Vascular Access Device into Chest Subcutaneous Tissue and Fascia, Percutaneous Approach (ICD-10-PCS; principal; 2020-10-16)
PROC: 02HV33Z Insertion of Infusion Device into Superior Vena Cava, Percutaneous Approach (ICD-10-PCS; 2020-10-16)
PROC: B518YZA Fluoroscopy of Superior Vena Cava using Other Contrast, Guidance (ICD-10-PCS; 2020-10-16)
PROC: 5A1D70Z Performance of Urinary Filtration, Intermittent, Less than 6 Hours Per Day (ICD-10-PCS; 2020-10-17)
DX: T82.868A Thrombosis due to vascular prosthetic devices, implants and grafts, initial encounter (principal); Y83.2 Surgical operation with anastomosis, bypass or graft as the cause of abnormal reaction of the patient, or of later complication, without mention of misadventure at the time of the procedure; N18.6 End stage renal disease; I12.0 Hypertensive chronic kidney disease with stage 5 chronic kidney disease or end stage renal disease; G40.909 Epilepsy, unspecified, not intractable, without status epilepticus; Z79.4 Long term (current) use of insulin; Z99.2 Dependence on renal dialysis; Z88.0 Allergy status to penicillin; F29 Unspecified psychosis not due to a substance or known physiological condition; K21.9 Gastro-esophageal reflux disease without esophagitis; M10.9 Gout, unspecified; E87.5 Hyperkalemia; D64.9 Anemia, unspecified; E78.5 Hyperlipidemia, unspecified; N40.0 Benign prostatic hyperplasia without lower urinary tract symptoms; F32.9 Major depressive disorder, single episode, unspecified; G47.00 Insomnia, unspecified; Z20.828 Contact with and (suspected) exposure to other viral communicable diseases; E11.22 Type 2 diabetes mellitus with diabetic chronic kidney disease; Z91.19 Patient's noncompliance with other medical treatment and regimen; Z82.49 Family history of ischemic heart disease and other diseases of the circulatory system; Z83.3 Family history of diabetes mellitus; Y92.89 Other specified places as the place of occurrence of the external cause
CPT/HCPCS: 36415; 71045-TC; 80048-TC; 80061-TC; 82962-TC; 83735-TC; 84100-TC; 84484-TC; 85025-TC; 86704; 86706; 87081-TC; 87340; 90935-TC; C1750; C1769; C9803; G0378; J1644; J1815; J2060; J2250; J2704; J2720; J2765; J3010; J3490; J7120; Q0177; Q9966; U0003